=== PATIENT | male | born 1990 | race Caucasian/White ===

== ENCOUNTER 2018-06-20 14:15 | Emergency (ER) | payer OTHER ==
[~2018-06-20] VITALS: Ht 180.3 cm; Wt 72.6 kg
[2018-06-20 14:35] LABS: ABSOLUTE BASOPHILS 0.1 thou/uL (0.0-0.2); ABSOLUTE EOSINOPHILS 0.1 thou/uL (0.0-0.7); ABSOLUTE LYMPHOCYTES 1.9 thou/uL (0.8-5.3); ABSOLUTE MONOCYTES 0.6 thou/uL (0.0-1.2); ABSOLUTE NEUTROPHILS 4.1 thou/uL (1.6-8.1); BASOPHILS 0.9 %; EOSINOPHILS 1.5 %; HEMATOCRIT 43.1 % (42.0-52.0); HEMOGLOBIN 14.6 gm/dL (14.0-18.0); LYMPHOCYTES 28.5 %; MCH 33.9 pg (26.0-34.0); MCV 99.6 fL (80.0-100.0); MONOCYTES 8.6 %; MPV 7.9 fl. (7.2-11.1); NUCLEATED RBCS 0 /100WBC; PLATELET COUNT* 108 thou/uL (150-400); POLYS 60.5 %; RBC 4.33 mil/uL (4.50-6.00); RDW-CV 15.4 % (10.5-14.5); WBC 6.8 thou/uL (4.0-11.0)
[2018-06-20 14:51] LABS: ANION GAP 26 mmol/L (7-16); BUN 10 mg/dL (7-18); CALCIUM 9.2 mg/dL (8.5-10.1); CHLORIDE 100 mmol/L (98-107); CO2 16 mmol/L (21-32); GLUCOSE 116 mg/dL (70-99); POTASSIUM 3.5 mmol/L (3.5-5.1); SODIUM 142 mmol/L (136-145)
[2018-06-20 14:58] LABS: ALBUMIN 4.8 g/dL (3.4-5.0); ALKALINE PHOSPHATASE 137 U/L (46-116); SGOT 141 U/L (15-37); SGPT 68 U/L (30-65); TOTAL BILIRUBIN 2.7 mg/dL (<0.1-1.0); TOTAL PROTEIN 8.8 g/dL (6.4-8.2); TROPONIN-I LEVEL <0.06 ng/mL (<0.06)
[2018-06-20] MEDS ORDERED: KEPPRA 500 MG500 M1 PO (15:53)
[2018-06-20 16:07] VITALS: BP 112/73
--- NOTE | 2018-06-21 13:39 | EKG ---
[place] [address] ELECTROCARDIOGRAM REPORT Name: LUIS PIMENTEL Room: [facility]#: [id number] Admission: 06/20/18 Attend Phys: Discharge: 06/20/18 Date of : [birth year] Report #: [id number] THIS REPORT FOR: //name// [facility] ED Test Date: 2018-06-20 Test Time: 14:31:47 Pat Name: LUIS PIMENTEL Department: Room: Gender: M [employer] Operator: MARIA FERNANDA [facility] STUDENT : 1990 Requested By: Marco Merino Order Number: [id number] MD: Romero Cehn Measurements Intervals [place] Rate: 106 P: 56 UT: 137 QRS: -16 QRSD: 98 T: 13 QT: 377 QTc: 501 Interpretive Statements Sinus tachycardia Borderline left axis deviation Borderline prolonged QT interval No previous ECG available for comparison Electronically Signed On 06-21-2018 13:38:51 [employer]IN[employer]AME by Romero Chen [email or web address] <ELECTRONICALLY SIGNED> By: Romero Chen MD, [facility] 06/21/18 1338 1431 1431 Romero Chen MD, FACC /EPI
== END 2018-06-20 16:07 | disposition home or self-care (01) ==
LOC: M.ERS 14:15
PROVIDERS: Family Medicine
DX: R56.9 Unspecified convulsions (principal); R42 Dizziness and giddiness

== ENCOUNTER 2018-09-28 18:25 | Emergency (ER) | payer OTHER ==
[~2018-09-28] VITALS: Ht 172.7 cm; Wt 78.8 kg
[~2018-09-28 18:25] MED LIST: KEPPRA 500 MG500 M1 PO
[2018-09-28 19:04] LABS: ABSOLUTE BASOPHILS 0.1 thou/uL (0.0-0.2); ABSOLUTE LYMPHOCYTES 1.2 thou/uL (0.8-5.3); ABSOLUTE MONOCYTES 0.6 thou/uL (0.0-1.2); ABSOLUTE NEUTROPHILS 6.8 thou/uL (1.6-8.1); BASOPHILS 0.8 %; EOSINOPHILS 0.2 %; HEMATOCRIT 41.6 % (42.0-52.0); HEMOGLOBIN 14.3 gm/dL (14.0-18.0); LYMPHOCYTES 13.4 %; MCH 33.7 pg (26.0-34.0); MCHC 34.3 g/dL (28.0-37.0); MCV 98.1 fL (80.0-100.0); MONOCYTES 7.2 %; MPV 7.6 fl. (7.2-11.1); NUCLEATED RBCS 0 /100WBC; PLATELET COUNT* 110 thou/uL (150-400); POLYS 78.4 %; RBC 4.25 mil/uL (4.50-6.00); RDW-CV 14.2 % (10.5-14.5); WBC 8.7 thou/uL (4.0-11.0)
[2018-09-28 19:23] LABS: ALBUMIN 4.8 g/dL (3.4-5.0); ALKALINE PHOSPHATASE 118 U/L (46-116); ANION GAP 20 mmol/L (7-16); BUN 11 mg/dL (7-18); CHLORIDE 101 mmol/L (98-107); CO2 24 mmol/L (21-32); CREATININE 1.1 mg/dL (0.6-1.3); GLUCOSE 181 mg/dL (70-99); MAGNESIUM 1.4 mg/dL (1.8-2.4); POTASSIUM 3.9 mmol/L (3.5-5.1); SGOT 148 U/L (15-37); SGPT 76 U/L (30-65); SODIUM 145 mmol/L (136-145); TOTAL BILIRUBIN 3.6 mg/dL (<0.1-1.0); TOTAL PROTEIN 8.5 g/dL (6.4-8.2); TROPONIN-I LEVEL <0.06 ng/mL (<0.06)
[2018-09-28 20:05] LABS: ACETAMINOPHEN < 2 ug/mL (10-30); ALCOHOL < 10 mg/dL (<10); SALICYLATE < 2.8 mg/dL (2.8-20.0)
[2018-09-28 20:17] LABS: DIRECT BILIRUBIN 1.4 mg/dL (<0.1-0.3); TOTAL BILIRUBIN 3.6 mg/dL (<0.1-1.0)
[2018-09-28 20:30] VITALS: BP 120/61
== END 2018-09-28 20:30 | disposition short-term general hospital (02) ==
LOC: M.ERS 18:25
PROVIDERS: Physician Assistant
DX: S06.5X0A Traumatic subdural hemorrhage without loss of consciousness, initial encounter (principal); R41.0 Disorientation, unspecified; R56.9 Unspecified convulsions; R94.5 Abnormal results of liver function studies; W18.39XA Other fall on same level, initial encounter; Y93.89 Activity, other specified; Y92.89 Other specified places as the place of occurrence of the external cause; Y99.0 Civilian activity done for income or pay